=== PATIENT | male | born 2000 | race Caucasian/White ===

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

== ENCOUNTER 2021-08-04 10:32 | Emergency (ER) | payer BC ==
[~2021-08-04 10:32] MED LIST: AFRIN NASAL SPR30 ML; ZITHROMAX250 MG PO; ZITHROMAX500 MG PO; ZOFRAN4 MG PO; ZYRTEC-D TABLE1 EACH PO
[2021-08-04] MEDS ORDERED: BACTRIM DS TAB1 EACH PO (11:35)
[2021-08-04] MEDS ORDERED: CEPHALEXIN500 M1 PO (11:35)
[2021-08-04] MEDS ORDERED: IBUPROFEN800 MG PO (11:35)
== END 2021-08-04 12:17 | disposition home or self-care (01) ==
LOC: ER1 10:32
DX: L02.211 Cutaneous abscess of abdominal wall (principal)
CPT/HCPCS: 10060; 99282

== ENCOUNTER 2021-08-07 02:27 | Emergency (ER) | payer BC ==
[~2021-08-07 02:27] MED LIST changes: +BACTRIM DS TAB1 EACH PO; +CEPHALEXIN500 M1 PO; +IBUPROFEN800 MG PO
[2021-08-07 03:37] LABS: HEMOGLOBIN 14.7 gm/dl (14.0-17.5); RED BLOOD COUNT 4.89 M/UL (4.20-5.50); WHITE BLOOD COUNT 12.4 K/UL (4.5-11.0)
[2021-08-07 04:01] LABS: BUN/CREATININE RATIO 11 (0-10)
== END 2021-08-07 05:35 | disposition home or self-care (01) ==
LOC: ER1 02:27
PROVIDERS: Physician Assistant
DX: L03.311 Cellulitis of abdominal wall (principal); R00.0 Tachycardia, unspecified
CPT/HCPCS: 10060; 80053; 83605; 85025; 87040; 96365; 99284; J0878; Q0177